=== PATIENT | female | born 1990 | race African-American/Black ===

== ENCOUNTER 2024-01-25 13:40 | Emergency (ER) | payer OTHER ==
[~2024-01-25] VITALS: Ht 175.3 cm; Wt 81.8 kg
[2024-01-25 13:55] VITALS: BP 137/90; PULSE 74; RESP 18; O2SAT 97
== END 2024-01-25 17:45 | disposition left against medical advice (07) ==
LOC: ER 13:40
DX: N92.0 Excessive and frequent menstruation with regular cycle (principal); Z53.21 Procedure and treatment not carried out due to patient leaving prior to being seen by health care provider